=== PATIENT | female | born 1980 | race Caucasian/White ===

== ENCOUNTER 2017-10-11 11:46 | Outpatient (CLI) ==
[2016-07-04 08:06] VITALS: BMI 25.3
== END 2017-10-12 11:47 | disposition short-term general hospital (02) ==
LOC: AMBL 11:46
PROVIDERS: ATTEND Internal Medicine
DX: R10.30 Lower abdominal pain, unspecified (principal); N93.9 Abnormal uterine and vaginal bleeding, unspecified; R53.83 Other fatigue